=== PATIENT | female | born 1950 | race Caucasian/White ===

== ENCOUNTER → 2016-11-24 | Outpatient (CLI) | payer MEDICARE, OTHER ==
--- NOTE | 2016-11-25 10:25 | ECHOF ---
Referral Reason:R01.1 Cardiac Murmur MEASUREMENTS -------- HEIGHT: 127.0 cm WEIGHT: 88.0 kg BP: IVSd: 1.1 cm (0.6 - 1.1) LVIDd: 2.5 cm (3.9 - 5.3) LVPWd: 1.3 cm (0.6 - 1.1) IVSs: 1.7 cm LVIDs: 1.2 cm LVPWs: 1.1 cm Ao Diam: 3.3 cm (2.0 - 3.7) AV Cusp: 2.0 cm (1.5 - 2.6) LA Diam: 2.6 cm (2.7 - 3.8) MV EXCURSION: 13.189 mm (> 18.000) MV EF SLOPE: 44 mm/s (70 - 150) EPSS: 0.8 cm MV E Willard: 0.59 m/s MV DecT: 223 ms MV A [place]: 1.22 m/s MV E/A Ratio: 0.48 AR PHT: 1093 ms RAP: 5.00 mmHg RVSP: 11.77 mmHg FINDINGS -------- Sinus rhythm. This was a technically good study. Left ventricular wall thickness is normal. Overall left ventricular systolic function is normal with, an EF between 55 - 60 %. The right ventricle is normal in size. The left atrium is normal in size. The right atrium is normal in size. The aortic valve is trileaflet and appears structurally normal. There is mild aortic regurgitation. The mitral valve leaflets are mildly thickened. Mild mitral regurgitation is present. Mild tricuspid regurgitation present. The right ventricular systolic pressure, as measured by Doppler, is 11.77mmHg. Pulmonic valve appears structurally normal. The aortic root size is normal. The pericardium is normal. CONCLUSIONS -------- 1. Sinus rhythm. 2. The mitral valve leaflets are mildly thickened. 3. Mild mitral regurgitation is present. 4. Mild tricuspid regurgitation present. 5. The right ventricular systolic pressure, as measured by Doppler, is 11.77mmHg. 6. Pulmonic valve appears structurally normal. 7. The aortic root size is normal. 8. The pericardium is normal. 9. This was a technically good study. 10. Left ventricular wall thickness is normal. 11. Overall left ventricular systolic function is normal with, an EF between 55 - 60 %. 12. The right ventricle is normal in size. 13. The left atrium is normal in size. 14. The right atrium is normal in size. 15. The aortic valve is trileaflet and appears structurally normal. 16. There is mild aortic regurgitation. [employer]: Jennifer Mcnamara RDCS
== END | disposition home or self-care (01) ==
LOC: RADECHMAIN 14:42
PROVIDERS: ATTEND Family Medicine
DX: I08.3 Combined rheumatic disorders of mitral, aortic and tricuspid valves (principal)
CPT/HCPCS: 93306

== ENCOUNTER → 2017-01-02 | Outpatient (CLI) | payer MEDICARE, OTHER ==
--- NOTE | 2017-01-02 09:26 | XR ---
EXAMINATION TYPE: XR Hip RT and AP Pelvis DATE OF EXAM: 01/02/2017 COMPARISON: NONE HISTORY: Pelvic and right hip pain after fall injury November 24 TECHNIQUE: A single AP view of the pelvis is obtained. Two views of the right hip are obtained. FINDINGS: There is no acute fracture/dislocation evident in the pelvis. The sacroiliac joints appea r symmetric and unremarkable. Some sclerosis at pubic symphysis is present. Multiple overlying pelvic phleboliths are seen. Two views of right hip show no acute fracture or dislocation. No focal lytic or sclerotic lesion see n in the proximal right femur. There is asymmetric moderate axial joint space loss and mild to moder ate acetabular spurring in the right hip. The overlying soft tissue is unremarkable. IMPRESSION: There is no acute fracture or dislocation in the pelvis or right hip. Asymmetric moderat e degenerative change right hip versus the left hip is noted.
== END | disposition home or self-care (01) ==
LOC: RADXRMAIN 08:51
PROVIDERS: ATTEND Family Medicine
DX: M25.551 Pain in right hip (principal)
CPT/HCPCS: 73502

== ENCOUNTER 2017-03-21 11:39 | Emergency (ER) | payer MEDICARE, OTHER ==
[2017-03-21 11:49] VITALS: BP 152/80; PULSE 60; RESP 17; TEMP 97.8
--- NOTE | 2017-03-21 12:42 | XR ---
EXAMINATION TYPE: XR ankle complete LT, XR knee complete LT DATE OF EXAM: 03/21/2017 CLINICAL HISTORY: pain TECHNIQUE: Three views of the left knee are obtained. COMPARISON: None. FINDINGS: There is no acute fracture/dislocation. There is severe narrowing of the lateral tibiofemo ral joint space with mild widening seen medially. Moderate patellofemoral joint space narrowing. Spur formation is noted about the margins of the femoral condyles and tibial plateaus. Intercondylar spur formation is also noted. The overlying soft tissue appears unremarkable. IMPRESSION: There is no acute fracture or dislocation ICD 10 NO FRACTURE, INITIAL EVALUATION EXAMINATION TYPE: XR ankle complete LT, XR knee complete LT DATE OF EXAM: 03/21/2017 COMPARISON: NONE HISTORY: Pain TECHNIQUE: 3 views of the left ankle are submitted for evaluation. FINDINGS: There is no evidence for fracture or dislocation. Ankle mortise is intact. Postoperative ch anges about the os calcis and midfoot. Generative changes noted. Soft tissues are within normal limit s. IMPRESSION: 1. No evidence for acute fracture.
--- NOTE | 2017-03-21 12:50 | ED ---
Lower Extremity Injury HPI - General Chief Complaint: Extremity Injury, Lower Stated Complaint: left knee pain Time Seen by Provider: 03/21/17 12:05 Source: patient, RN notes reviewed Mode of arrival: EMS Limitations: no limitations - History of Present Illness Initial Comments: 67-year-old female presents emergency Department chief complaint of left knee and ankle pain. Patient states that she was vacuuming earlier today around 10 AM when she stepped back onto an exercise equipment piece and twisted her ankle and knee. Patient states she did fall and minimal head injury no loss conscious and denies any headache, dizziness, neck pain or any back pain. Patient states that she was barely able to put any weight on that side secondary to pain. Patient had prior surgery to her left foot but states the pain is only in her ankle and knee. - Related Data Home Medications Medication Instructions Recorded Confirmed Hydrochlorothiazide 25 mg PO DAILY 04/29/15 05/04/15 Allergies Allergy/AdvReac Type Severity Reaction Status Date / Time Tetanus Vaccines and Toxoid Allergy Swelling Verified 03/21/17 11:44 [Tetanus Vaccines & Toxoid] Review of Systems ROS Statement: Those systems with pertinent positive or pertinent negative responses have been documented in the HPI. ROS Other: All systems not noted in ROS Statement are negative. Past Medical History Past Medical History: Hypertension Additional Past Medical History / Comment(s): OCCASIONAL EDEMA LEFT LEG, RIB PAIN AT NIGHT R/T HX OF FX RIBS History of Any Multi-Drug Resistant Organisms: None Reported Past Surgical History: Hysterectomy, Orthopedic Surgery, Tubal Ligation Additional Past Surgical History / Comment(s): HEMATOMA REMOVED FROM RT LOPES, HEMATOMA REMOVED FROM LEFT KNEE, LEFT FOOT SX, WITH SCREWS, SOME REMOVED, BLADDER AND RECTAL SLING, LIPOMA REMOVED FROM LEFT UPPER BACK Past Anesthesia/Blood Transfusion Reactions: No Reported Reaction Past Psychological History: No Psychological Hx Reported Smoking Status: Never smoker Past Alcohol Use History: None Reported Past Drug Use History: None Reported - Past Family History Mother Family Medical History: Cancer Additional Family Medical History / Comment(s): COLON General Exam Limitations: no limitations General appearance: alert, in no apparent distress Head exam: Present: atraumatic, normocephalic, normal inspection Eye exam: Present: normal appearance, PERRL, EOMI. Absent: scleral icterus, conjunctival injection, periorbital swelling, periorbital tenderness ENT exam: Present: normal exam, normal oropharynx, mucous membranes moist Neck exam: Present: normal inspection. Absent: tenderness, meningismus, lymphadenopathy Respiratory exam: Present: normal lung sounds bilaterally. Absent: respiratory distress, wheezes, rales, rhonchi, stridor Cardiovascular Exam: Present: regular rate, normal rhythm, normal heart sounds. Absent: systolic murmur, diastolic murmur, rubs, gallop, clicks Extremities exam: Present: other (Left knee there is mild swelling, left ankle mild swelling there is tenderness to the left knee with full range of motion no laxity noted negative anterior posterior drawer, neurovascular intact with equal pedal pulses, left ankle tenderness greater on the lateral versus a medial malleolus there is no foot tenderness there is old surgical scars noted) Back exam: Present: full ROM. Absent: tenderness Neurological exam: Present: alert, oriented X3, CN II-XII intact, reflexes normal. Absent: motor sensory deficit Skin exam: Present: warm, dry, intact, normal color. Absent: rash Course Vital Signs 03/21/17 11:44 Temperature 97.8 F Pulse Rate 60 Respiratory 17 Rate Blood Pressure 152/80 O2 Sat by Pulse 100 Oximetry Medical Decision Making - Medical Decision Making 67-year-old female presented emergency from for fall, left knee ankle injury. There is no acute fracture. Patient most likely has a left ankle sprain in left knee sprain. Patient will be given Pierre wrap advised to follow up with PCP and return if symptoms worsen. Disposition Clinical Impression: Left knee sprain, Left ankle sprain Disposition: HOME SELF-CARE Condition: Stable Instructions: Knee Sprain (ED), Ankle Sprain (ED) Additional Instructions: Please return to the Emergency Department if symptoms worsen or any other concerns. Referrals: Greta Echevarria MD [Primary Care Provider] - 1-2 days Emmett Venegas DO [Doctor of Osteopathic Medicine] - 1-2 days Time of Disposition: 12:50
== END 2017-03-21 12:55 | disposition home or self-care (01) ==
LOC: EC 11:39
DX: S93.402A Sprain of unspecified ligament of left ankle, initial encounter (principal); S83.92XA Sprain of unspecified site of left knee, initial encounter; I10 Essential (primary) hypertension; Z79.899 Other long term (current) drug therapy; Z88.7 Allergy status to serum and vaccine; Z98.890 Other specified postprocedural states; W18.31XA Fall on same level due to stepping on an object, initial encounter; X50.1XXA Overexertion from prolonged static or awkward postures, initial encounter; Y93.E3 Activity, vacuuming
CPT/HCPCS: 99283

== ENCOUNTER → 2018-07-26 | Outpatient (CLI) | payer MEDICARE, OTHER ==
--- NOTE | 2018-07-27 13:31 | MM ---
Reason for exam: screening (asymptomatic). Physical Findings: A clinical breast exam by your physician is recommended on an annual basis and results should be correlated with mammographic findings. MG Screening Mammo w CAD Bilateral CC and MLO view(s) were taken. There are scattered fibroglandular densities. There are benign appearing round dystrophic calcifications bilaterally. There is chronic nodularity bilaterally. There is no discrete abnormality. ASSESSMENT: Benign, BI-RAD 2 RECOMMENDATION: Routine screening mammogram of both breasts in 1 year.
== END ==
LOC: RADMAMWWP 09:49
PROVIDERS: ATTEND Family Medicine
DX: Z12.31 Encounter for screening mammogram for malignant neoplasm of breast (principal)
CPT/HCPCS: 77067

== ENCOUNTER → 2019-09-12 | Outpatient (CLI) | payer MEDICARE, OTHER | END | disposition home or self-care (01) | LOC: RADUSWWP 07:48 | PROVIDERS: ATTEND Podiatrist Foot & Ankle Surgery | DX: I73.9 Peripheral vascular disease, unspecified (principal) | CPT/HCPCS: 93922; 93923 ==

== ENCOUNTER → 2019-09-27 | Outpatient (CLI) | payer MEDICARE ==
--- NOTE | 2019-09-27 14:31 | MM ---
Reason for exam: screening (asymptomatic). Last mammogram was performed 1 year and 2 months ago. History: Patient is postmenopausal. Took hormonal contraceptives for 2 months. Physical Findings: A clinical breast exam by your physician is recommended on an annual basis and results should be correlated with mammographic findings. MG Screening Mammo w CAD Bilateral CC and MLO view(s) were taken. Prior study comparison: July 26, 2018, bilateral MG screening mammo w CAD. There are scattered fibroglandular densities. Benign appearing bilateral calcifications. No suspicious abnormality. No significant changes when compared with prior studies. ASSESSMENT: Benign, BI-RAD 2 RECOMMENDATION: Routine screening mammogram of both breasts in 1 year.
== END | disposition home or self-care (01) ==
LOC: RADMAMWWP 07:53
PROVIDERS: ATTEND Family Medicine
DX: Z12.31 Encounter for screening mammogram for malignant neoplasm of breast (principal)
CPT/HCPCS: 77067

== ENCOUNTER → 2020-02-06 | Outpatient (CLI) | payer MEDICARE ==
--- NOTE | 2020-02-06 14:02 | XR ---
EXAMINATION TYPE: XR lumbosacral spine min 5 views XR Hip Complete 2 views RT DATE OF EXAM: 02/06/2020 COMPARISON: NONE HISTORY: 69-year-old female with right thigh pain, M79.651 FINDINGS: LUMBAR SPINE: Advanced hypertrophic facet arthropathy mid to lower lumbar spine. Transitional lumbosacral segment d enoted as a sacralized L5. Grade 1 retrolisthesis at L1-L2 and L2-L3. Grade 1 anterolisthesis at L3-L 4 and L4-L5. Moderate degenerative disc disease with bulky endplate spondylosis throughout. [place]' s disease. Vertebral body heights are preserved. RIGHT HIP: Mild superolateral narrowing of right hip joint space. Multiple pelvic phleboliths. Marginal spurring is present. No acute fracture, subluxation, or dislocation. IMPRESSION: 1. Lumbar spine: Severe hypertrophic facet arthropathy. Transitional lumbosacral segment denoted as a sacralized L5. Grade 1 spondylolisthesis from L1 through L5 levels. Moderate degenerative disc disea se and endplate spondylosis throughout. 2. Right hip: Mild right hip OA. No acute osseous abnormality seen.
== END | disposition home or self-care (01) ==
LOC: RADXRMAIN 13:05
PROVIDERS: ATTEND Family Medicine
DX: M16.11 Unilateral primary osteoarthritis, right hip (principal); M51.36 Other intervertebral disc degeneration, lumbar region; M47.816 Spondylosis without myelopathy or radiculopathy, lumbar region; M43.16 Spondylolisthesis, lumbar region; M46.96 Unspecified inflammatory spondylopathy, lumbar region
CPT/HCPCS: 72110; 73502

== ENCOUNTER 2020-07-28 07:47 | Emergency (ER) | payer MEDICARE ==
[2020-07-28 07:52] VITALS: PULSE 57; RESP 18; TEMP 98.1
[2020-07-28] MEDS ORDERED: KETOROLAC 15 MG/ML 1 ML VIAL IVP STA (08:02)
--- NOTE | 2020-07-28 08:15 | ED ---
General Adult HPI - General Chief complaint: Back Pain/Injury Stated complaint: lower back pain,nausea Time Seen by Provider: 07/28/20 07:53 Source: patient, RN notes reviewed, old records reviewed Mode of arrival: wheelchair Limitations: no limitations - History of Present Illness Initial comments: 70-year-old female presenting for acute low back pain. Patient developed left- sided low back pain suddenly yesterday evening around 7 PM. She reports as sociated nausea. No vomiting. She denies dysuria or hematuria. She denies any specific injury. She denies pain to the lower extremities. She denies numbness or weakness in the lower extremities. She states she did have one episode of loose stool. No upper abdominal pain. No chest pain. No dyspnea. - Related Data Home Medications Medication Instructions Recorded Confirmed hydroCHLOROthiazide 25 mg PO DAILY 04/29/15 07/28/20 Ibuprofen [Motrin] 400 mg PO Q8H PRN 05/26/17 07/28/20 Losartan [Cozaar] 25 mg PO DAILY 07/28/20 07/28/20 Previous Rx's Medication Instructions Recorded HYDROcodone/APAP 5-325MG [[place] 1 tab PO Q6HR PRN #12 tab 07/28/20 5-325] Ibuprofen [Motrin] 600 mg PO Q8HR PRN #24 tab 07/28/20 Allergies Allergy/AdvReac Type Severity Reaction Status Date / Time Tetanus Vaccines and Toxoid Allergy Swelling Verified 07/28/20 08:43 [Tetanus Vaccines & Toxoid] Review of Systems ROS Statement: Those systems with pertinent positive or pertinent negative responses have been documented in the HPI. ROS Other: All systems not noted in ROS Statement are negative. Past Medical History Past Medical History: Hypertension Additional Past Medical History / Comment(s): OCCASIONAL EDEMA LEFT LEG, RIB PAIN AT NIGHT R/T HX OF FX RIBS History of Any Multi-Drug Resistant Organisms: None Reported Past Surgical History: Hysterectomy, Orthopedic Surgery, Tubal Ligation Additional Past Surgical History / Comment(s): HEMATOMA REMOVED FROM RT LOPES, HEMATOMA REMOVED FROM LEFT KNEE, LEFT FOOT SX, WITH SCREWS, SOME REMOVED, BLADDER AND RECTAL SLING, LIPOMA REMOVED FROM LEFT UPPER BACK Past Anesthesia/Blood Transfusion Reactions: No Reported Reaction Past Psychological History: No Psychological Hx Reported Smoking Status: Never smoker Past Alcohol Use History: None Reported Past Drug Use History: None Reported - Past Family History Mother Family Medical History: Cancer Additional Family Medical History / Comment(s): COLON General Exam Limitations: no limitations General appearance: alert, in no apparent distress Head exam: Present: atraumatic, normocephalic Eye exam: Present: normal appearance, PERRL ENT exam: Present: normal exam Neck exam: Present: normal inspection. Absent: tenderness, meningismus Respiratory exam: Present: normal lung sounds bilaterally. Absent: respiratory distress, wheezes Cardiovascular Exam: Present: regular rate, normal rhythm GI/Abdominal exam: Present: soft. Absent: distended, tenderness Extremities exam: Present: normal inspection, other (Normal sensation, 2+ DP pulses bilaterally.). Absent: pedal edema Back exam: Present: normal inspection, tenderness, CVA tenderness (L), paraspinal tenderness (Left). Absent: full ROM Neurological exam: Present: alert, oriented X3, CN II-XII intact. Absent: motor sensory deficit Psychiatric exam: Present: normal affect, normal mood Skin exam: Present: warm, dry, intact. Absent: cyanosis, diaphoretic Course Vital Signs 07/28/20 07/28/20 07/28/20 07:49 08:52 09:00 Temperature 98.1 F Pulse Rate 57 L 57 L 57 L Respiratory 18 18 18 Rate Blood Pressure 130/74 140/72 140/72 O2 Sat by Pulse 100 100 100 Oximetry Medical Decision Making - Medical Decision Making 70-year-old female with left-sided lower back pain. Patient hemodynamically stable. She has normal sensation, normal strength in the lower extremities. Symptoms began abruptly. She has had issues with chronic back pain in the past and does follow with chiropractor and has been followed by her primary care physician for this pain over the past one year. Patient has been given 50 mg of Toradol and 0.5 mg of Dilaudid emergency department with significant improvement in her pain. Workup reveals mild leukocytosis 11.3 of uncertain etiology. Normal CMP. Urinalysis shows 2+ ketones with no signs of infection or hematuria. CT of the lumbar spine as well as CT abdomen and pelvis showing multilevel degenerative change in the lumbar spine with no acute findings. No hydronephrosis, no renal stones. No other acute findings. Patient feeling better on reevaluation. She's given outpatient orthopedic follow-up. She will be prescribed anti-inflammatories for her low back pain. - Lab Data Result diagrams: 07/28/20 08:19 12 08:19 Lab Results 07/28/20 07/28/20 07/28/20 Range/Units 08:19 08:19 08:19 WBC 11.3 H (3.8-10.6) k/uL RBC 4.27 (3.80-5.40) m/uL Hgb 13.4 (11.4-16.0) gm/dL Hct 40.0 (34.0-46.0) % MCV 93.7 (80.0-100.0) fL MCH 31.3 (25.0-35.0) pg MCHC 33.4 (31.0-37.0) g/dL RDW 12.5 (11.5-15.5) % Plt Count 342 (150-450) k/uL MPV 6.7 Neutrophils % 86 % Lymphocytes % 9 % Monocytes % 4 % Eosinophils % 0 % Basophils % 0 % Neutrophils # 9.7 H (1.3-7.7) k/uL Lymphocytes # 1.0 (1.0-4.8) k/uL Monocytes # 0.5 (0-1.0) k/uL Eosinophils # 0.0 (0-0.7) k/uL Basophils # 0.0 (0-0.2) k/uL PT 9.7 (9.0-12.0) sec INR 0.9 (<1.2) APTT 23.0 (22.0-30.0) sec Sodium (137-145) mmol/L Potassium (3.5-5.1) mmol/L Chloride (98-107) mmol/L Carbon Dioxide (22-30) mmol/L Anion Gap mmol/L BUN (7-17) mg/dL Creatinine (0.52-1.04) mg/dL Est GFR (CKD-EPI)AfAm (>60 ml/min/1.73 sqM) Est GFR (CKD-EPI)NonAf (>60 ml/min/1.73 sqM) Glucose (74-99) mg/dL Calcium (8.4-10.2) mg/dL Total Bilirubin (0.2-1.3) mg/dL AST (14-36) U/L ALT (4-34) U/L Alkaline Phosphatase (38-126) U/L Total Protein (6.3-8.2) g/dL Albumin (3.5-5.0) g/dL Urine Color Yellow Urine Appearance Clear (Clear) Urine pH 6.0 (5.0-8.0) Ur Specific [place] 1.025 (1.001-1.035) Urine Protein Negative (Negative) Urine Glucose (UA) Negative (Negative) Urine Ketones 2+ H (Negative) Urine Blood Negative (Negative) Urine Nitrite Negative (Negative) Urine Bilirubin Negative (Negative) Urine Urobilinogen <2.0 (<2.0) mg/dL Ur Leukocyte Esterase Negative (Negative) 07/28/20 Range/Units 08:19 WBC (3.8-10.6) k/uL RBC (3.80-5.40) m/uL Hgb (11.4-16.0) gm/dL Hct (34.0-46.0) % MCV (80.0-100.0) fL MCH (25.0-35.0) pg MCHC (31.0-37.0) g/dL RDW (11.5-15.5) % Plt Count (150-450) k/uL MPV Neutrophils % % Lymphocytes % % Monocytes % % Eosinophils % % Basophils % % Neutrophils # (1.3-7.7) k/uL Lymphocytes # (1.0-4.8) k/uL Monocytes # (0-1.0) k/uL Eosinophils # (0-0.7) k/uL Basophils # (0-0.2) k/uL PT (9.0-12.0) sec INR (<1.2) APTT (22.0-30.0) sec Sodium 138 (137-145) mmol/L Potassium 3.8 (3.5-5.1) mmol/L Chloride 101 (98-107) mmol/L Carbon Dioxide 29 (22-30) mmol/L Anion Gap 8 mmol/L BUN 26 H (7-17) mg/dL Creatinine 0.49 L (0.52-1.04) mg/dL Est GFR (CKD-EPI)AfAm >90 (>60 ml/min/1.73 sqM) Est GFR (CKD-EPI)NonAf >90 (>60 ml/min/1.73 sqM) Glucose 120 H (74-99) mg/dL Calcium 9.9 (8.4-10.2) mg/dL Total Bilirubin 0.8 (0.2-1.3) mg/dL AST 27 (14-36) U/L ALT 21 (4-34) U/L Alkaline Phosphatase 80 (38-126) U/L Total Protein 7.9 (6.3-8.2) g/dL Albumin 4.5 (3.5-5.0) g/dL Urine Color Urine Appearance (Clear) Urine pH (5.0-8.0) Ur Specific [place] (1.001-1.035) Urine Protein (Negative) Urine Glucose (UA) (Negative) Urine Ketones (Negative) Urine Blood (Negative) Urine Nitrite (Negative) Urine Bilirubin (Negative) Urine Urobilinogen (<2.0) mg/dL Ur Leukocyte Esterase (Negative) Disposition Clinical Impression: Mechanical back pain, Strain of lumbar region, Osteoarthritis Disposition: HOME SELF-CARE Condition: Fair Instructions (If sedation given, give patient instructions): Acute Low Back Pain (ED) Additional Instructions: Please return to the emergency department with worsening or changing symptoms. Please follow-up with [facility]opedic[facility]. Prescriptions: Ibuprofen [Motrin] 600 mg PO Q8HR PRN #24 tab PRN Reason: Pain HYDROcodone/APAP 5-325MG [[place] 5-325] 1 tab PO Q6HR PRN #12 tab PRN Reason: Pain Is patient prescribed a controlled substance at d/c from ED?: No Referrals: Alvaro Mcleod [Primary Care Provider] - 1-2 days Jeanine Montes De Oca DO [Doctor of Osteopathic Medicine] - 1-2 days Logan Tracy DO [Doctor of Osteopathic Medicine] - 1-2 days Time of Disposition: 09:49
[2020-07-28 08:33] LABS: Appearance,Urine Clear (Clear); Bilirubin,Urine Negative (Negative); Blood,Urine Negative (Negative); Color,Urine Yellow; Glucose,Urine (UA) Negative (Negative); Ketones,Urine 2+ (Negative); Leukocyte Esterase,Urine Negative (Negative); Nitrite,Urine Negative (Negative); Protein,Urine Negative (Negative); Specific Gravity,Urine 1.025 (1.001-1.035); Urobilinogen,Urine <2.0 mg/dL (<2.0)
[2020-07-28 08:38] LABS: Basophils % (A) 0 %; Eosinophils % (A) 0 %; HGB 13.4 gm/dL (11.4-16.0); Lymphocytes % (A) 9 %; MCH 31.3 pg (25.0-35.0); MCHC 33.4 g/dL (31.0-37.0); MCV 93.7 fL (80.0-100.0); Mean Platelet Volume 6.7; Monocytes # (A) 0.5 k/uL (0-1.0); Monocytes % (A) 4 %; Neutrophils # (A) 9.7 k/uL (1.3-7.7); Neutrophils % (A) 86 %; Platelet Count 342 k/uL (150-450); RBC 4.27 m/uL (3.80-5.40); RDW 12.5 % (11.5-15.5); WBC 11.3 k/uL (3.8-10.6)
[2020-07-28 08:41] LABS: ALT 21 U/L (4-34); AST 27 U/L (14-36); African American GFR (CKD) >90 (>60 ml/min/1.73 sqM); Albumin 4.5 g/dL (3.5-5.0); Alkaline Phosphatase 80 U/L (38-126); Anion Gap 8 mmol/L; Blood Urea Nitrogen 26 mg/dL (7-17); Calcium 9.9 mg/dL (8.4-10.2); Carbon Dioxide 29 mmol/L (22-30); Chloride 101 mmol/L (98-107); Glucose 120 mg/dL (74-99); Non-African American GFR(CKD) >90 (>60 ml/min/1.73 sqM); Potassium 3.8 mmol/L (3.5-5.1); Sodium 138 mmol/L (137-145); Total Bilirubin 0.8 mg/dL (0.2-1.3); Total Protein 7.9 g/dL (6.3-8.2)
[2020-07-28 08:52] LABS: INR 0.9 (<1.2); Prothrombin Time 9.7 sec (9.0-12.0)
[2020-07-28] MEDS ORDERED: HYDROmorphone 0.5 MG/0.5 ML SYRINGE IVP STA (08:56)
[2020-07-28] MEDS ORDERED: SODIUM CHLORIDE 0.9% 500 ML 500 ML IV ONE (09:00)
--- NOTE | 2020-07-28 09:03 | CT ---
EXAMINATION TYPE: CT abdomen pelvis wo con, CT lumbar spine wo con DATE OF EXAM: 07/28/2020 HISTORY: Low back pain, left lower quadrant and pelvic pain since last night. CT DLP: 929.4 (accession [id number]), included in DLP from abd/pelvis (accession [id number]) [facility]. Auto mated Exposure Control for Dose Reduction was Utilized. TECHNIQUE: CT scan of the abdomen and pelvis is performed without oral or IV contrast. CT lumbar spi ne without contrast. COMPARISON: NONE FINDINGS: Within the limitations of a non-contrast study, the following observations are made. LUNG BASES: No significant abnormality is appreciated. LIVER/GB: Single punctate calcification in liver coronal image 34 is presumed benign. PANCREAS: No significant abnormality is seen. SPLEEN: No significant abnormality is seen. ADRENALS: No significant abnormality is seen. KIDNEYS: No significant abnormality is seen. BOWEL: Appendix within normal limits for base of cecum in the right pelvis. No suspicious small or la rge bowel dilatation. Suboptimal evaluation without enteric contrast noted. Few scattered sigmoid col onic diverticula. No surrounding inflammatory change or fat stranding. GENITAL ORGANS: Uterus is surgically absent. Scattered bilateral pelvic phleboliths. LYMPH NODES: No greater than 1cm abdominal or pelvic lymph nodes are appreciated. OSSEOUS STRUCTURES: Moderate axial joint space loss and spurring of both hips. Narrowing of pubic sym physis. Lumbar spine: There is a transitional vertebra. There is grade 1 anterolisthesis L4 on L5 seen best s agittal image 27. There is grade 1 retrolisthesis L2 on L3. Moderate to severe disc space narrowing w ith vacuum disc phenomenon and moderate to severe spurring L2-L3 level. Mild to moderate disc space n arrowing with vacuum disc phenomenon and moderate right-sided spurring L4-L5 level. Additional modera te multilevel anterior and lateral spurring. Slight scoliotic curvature on coronal images. Review of axial images shows spondylolisthesis and posterior spur disc complex effacing the anterior thecal sac at L2-L3 level on image 27 and causing [id number] left-sided neural foraminal narrow ing. Axial images at the L3-L4 level show moderate to advanced broad disc bulge and moderate facet arthrop athy. There is effacement of the anterior and posterior lateral thecal sac on image 37. There is mode rate right and mild left-sided neural foraminal narrowing. Axial images at L4-L5 level shows advanced facet arthropathy with spondylolisthesis and advanced broa d disc bulge. There is effacement of the anterior thecal sac. There is moderate to severe bilateral n eural foraminal narrowing on axial image 46. Axial images at the L5-L6 level show advanced facet arthropathy bilaterally. Posterior spur disc comp boom is present. There is moderate bilateral anterior inferior neural foraminal narrowing. OTHER: No significant additional abnormality is seen. IMPRESSION: Multilevel spondylolisthesis and fairly advanced degenerative changes in the lumbar spine as detailed above. No acute findings are evident.
[2020-07-28 10:00] VITALS: BP 146/86
== END 2020-07-28 09:53 | disposition home or self-care (01) ==
LOC: EC 07:47
DX: M47.816 Spondylosis without myelopathy or radiculopathy, lumbar region (principal); S39.012A Strain of muscle, fascia and tendon of lower back, initial encounter; M19.90 Unspecified osteoarthritis, unspecified site; I10 Essential (primary) hypertension; G89.29 Other chronic pain; M54.9 Dorsalgia, unspecified; D72.829 Elevated white blood cell count, unspecified; Z79.899 Other long term (current) drug therapy; Z88.7 Allergy status to serum and vaccine; X58.XXXA Exposure to other specified factors, initial encounter
CPT/HCPCS: 36415; 80053; 85025; 85610; 85730; 81003; 72131; 74176; 99284; 96374; 96375; J1885; J1170

== ENCOUNTER → 2020-08-24 | Outpatient (CLI) | payer MEDICARE, OTHER ==
--- NOTE | 2020-08-25 07:58 | MR ---
EXAMINATION TYPE: MR lumbar spine wo con DATE OF EXAM: 08/24/2020 COMPARISON: CT lumbar spine 07/28/2020 HISTORY: Low back pain TECHNIQUE: Multiplanar, multisequence images of the lumbar spine were acquired. Numbering scheme used is not the same as on prior CT, first nonrib-bearing lumbar segments is labeled as L1, correlate prior to any intervention. L1-L2: Posterior broad-based disc bulge causes anterior mass effect on the thecal sac. There is some facet arthropathy change. No significant spinal stenosis. Retrolisthesis contributes to cause bilater al foraminal encroachment. L2-L3: Posterior broad-based disc bulge causes anterior mass effect on the thecal sac, circumferentia l extension endplate disc complex results in bilateral foraminal encroachment. Facet arthropathy caus es some posterior lateral mass effect on the thecal sac. L3-L4: There is spinal stenosis due to hypertrophic changes of the facets causing posterior lateral m ass effect on the thecal sac which results in a trefoil appearance of the thecal sac, listhesis contr ibutes to cause bilateral foraminal encroachment. There is some encroachment on the lateral recesses. Minimal posterior disc bulge is present causing anterior mass effect on the thecal sac. L4-L5: There is facet arthropathy present. Hypertrophic changes causes some posterior lateral mass ef fect on the thecal sac. Listhesis contributes to cause bilateral foraminal encroachment. No evident d isc herniation. L5-S1: Normal disc appearance without desiccation. No herniation, protrusion or disc bulging. No ca nal stenosis is present. Foramina are patent bilaterally. Lumbar segments are intact. No paraspinal masses are identified. Conus medullaris has a normal appe arance. There is a spinal curvature. Multilevel spondylosis is present. Anterolisthesis grade 1 L4-5 and greater at L3-4 where there is vacuum disc phenomenon, retrolisthesis grade 1 L1-2 with associate d vacuum disc. Multilevel loss of disc height is present. There is multilevel endplate discogenic mar row signal change, loss of disc height and signal at intervertebral levels. IMPRESSION: Numbering scheme is not the same as that seen on prior CT as described, correlate prior to any interv ention. Multilevel foraminal encroachment, degenerative disc disease, spinal stenosis as described. T here is a spinal curvature.
== END | disposition home or self-care (01) ==
LOC: RADMRIMAIN 09:25
PROVIDERS: ATTEND Orthopaedic Surgery Orthopaedic Surgery of the Spine
DX: M48.061 Spinal stenosis, lumbar region without neurogenic claudication (principal); M51.16 Intervertebral disc disorders with radiculopathy, lumbar region; M43.8X6 Other specified deforming dorsopathies, lumbar region; M16.11 Unilateral primary osteoarthritis, right hip
CPT/HCPCS: 72148

== ENCOUNTER → 2021-04-06 | Outpatient (CLI) | payer MEDICARE ==
--- NOTE | 2021-04-06 10:27 | US ---
EXAMINATION TYPE: US duplex aorta DATE OF EXAM: 04/06/2021 COMPARISON: CT CLINICAL HISTORY: R19.8 Pulsatile abdomen. Patient stated feels pulsatile aorta at umbilicus after lo sing 61lbs; controlled HTN with medication. EXAM MEASUREMENTS: Abdominal Aorta: Proximal: 2.4 x 2.3cm Mid: 2.1 x 1.7cm Distal: 2.0 x 1.5cm Bifurcation: Right MELIZA = 0.9 x 0.9cm; Left MELIZA = 1.1 x 1.3cm. Ectatic appearance to upper aorta is noted. Intimal wall thickening is noted intermittently throughou t aorta and into common iliac artery (MELIZA) bilaterally. IMPRESSION: 1. Atheromatous plaquing without fusiform prominence or aneurysmal dilatation of the aorta.
== END | disposition home or self-care (01) ==
LOC: RADUSWWP 06:56
PROVIDERS: ATTEND Family Medicine
DX: I70.0 Atherosclerosis of aorta (principal); I10 Essential (primary) hypertension
CPT/HCPCS: 93979

== ENCOUNTER → 2023-03-01 | Outpatient (CLI) | payer MEDICARE, OTHER ==
--- NOTE | 2023-03-01 10:32 | XR ---
EXAMINATION TYPE: XR Hip RT and AP Pelvis DATE OF EXAM: 03/01/2023 10:27 AM INDICATION: Patient age:Female; 72 years old; Reason for study: M25.551 Right hip pain; PHH. COMPARISON: Right hip/pelvic radiographs 01/02/2017 TECHNIQUE: The right hip was examined in the frontal and lateral projections and a AP pelvis. FINDINGS: No evidence of any acute osseous pathology, joint dislocation, or soft tissue swelling. Mil d superior-lateral narrowing of the right hip joint space again demonstrated. Marginal spurring is ag ain present. Multiple pelvic phleboliths. Degenerative changes of the visualized lumbar spine. IMPRESSION: 1. No acute osseous pathology. 2. Mild osteoarthritic changes of the right hip.
== END | disposition home or self-care (01) ==
LOC: RADXRMAIN 10:02
PROVIDERS: ATTEND Family Medicine
DX: M16.11 Unilateral primary osteoarthritis, right hip (principal)
CPT/HCPCS: 73502

== ENCOUNTER → 2023-12-07 | Outpatient (CLI) | payer MEDICARE, OTHER ==
--- NOTE | 2023-12-07 12:19 | XR ---
EXAMINATION TYPE: XR knee complete bilateral DATE OF EXAM: 12/07/2023 COMPARISON: Left knee 03/21/2017 HISTORY: 73-year-old female pain after recent fall TECHNIQUE: 3 views FINDINGS: Left: There is tricompartmental degenerative change, severe, bone on bone within the lateral compartment. A t least moderate in the patellofemoral compartment. There may be a moderate to large knee joint effus ion. No acute fracture, subluxation, or dislocation is seen. Right: Tricompartmental degenerative spurring. Small knee joint effusion. Mild narrowing of cartilage and emeka int space throughout the knee. Extensor mechanism is intact. IMPRESSION: 1. 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 Moderate to large joint effusion could be reactive. No acute osseous abnormality seen. I f concern for an occult osseous injury or internal derangement, MRI can be performed. 2. Right: Mild to moderate tricompartmental osteoarthrosis. Small knee joint effusion may be reactive .
== END | disposition home or self-care (01) ==
LOC: RADXRMAIN 11:18
PROVIDERS: ATTEND Family Medicine
DX: M17.12 Unilateral primary osteoarthritis, left knee (principal); M25.461 Effusion, right knee; M25.462 Effusion, left knee

== ENCOUNTER 2024-07-06 14:14 | Emergency (ER) | payer MEDICARE, OTHER ==
[2024-07-06 14:25] VITALS: TEMP 98.1
--- NOTE | 2024-07-06 15:16 | ED ---
Abdominal Pain HPI - General Source: patient, family, RN notes reviewed Mode of arrival: wheelchair Limitations: no limitations <Kendra Lowery - Last Filed: 07/06/24 17:01> <Cathy Ratliff - Last Filed: 07/06/24 18:34> - General Chief Complaint: Abdominal Pain Stated Complaint: R side abd pain Time Seen by Provider: 07/06/24 15:14 - History of Present Illness Initial Comments: 74-year-old female presented to the ER with a chief complaint of right flank/abdominal pain. Patient has a history of dementia and is a poor historian. Zmvazhgb-kg-spa at bedside is aiding in HPI. For the past few days patient has been complaining of right flank/lower abdominal pain. She states pain has made it difficult for her to ambulate. She does report a large hard bowel movement approximately 2 days ago. She has not had a bowel movement since. She denies any hematochezia, melena, nausea or vomiting. Patient denies any dysuria or hematuria. No fevers. Patient has tried taking suef-rjv-[id number] Tylenol without relief of symptoms. Patient denies any known injuries or falls. Patient has no other complaints. (Kendra Lowery) - Related Data Home Medications Medication Instructions Recorded Confirmed hydroCHLOROthiazide 25 mg PO DAILY 04/29/15 07/06/24 Atorvastatin [Lipitor] 20 mg PO HS 07/06/24 07/06/24 FLUoxetine HCL [PROzac] 20 mg PO DAILY 07/06/24 07/06/24 Focus Factor 4 tab PO DAILY 07/06/24 07/06/24 Previous Rx's Medication Instructions Recorded Lidocaine 5% Patch [Lidoderm 5% 1 patch TOPICAL DAILY 7 Days #7 07/06/24 Patch] patch Naproxen [Naprosyn] 500 mg PO Q12H PRN #30 tablet 07/06/24 Allergies Allergy/AdvReac Type Severity Reaction Status Date / Time Tetanus Vaccines and Toxoid Allergy Swelling Verified 07/06/24 17:19 [Tetanus Vaccines & Toxoid] Review of Systems ROS Other: All systems not noted in ROS Statement are negative. <Kendra Lowery - Last Filed: 07/06/24 17:01> ROS Other: All systems not noted in ROS Statement are negative. <Cathy Ratliff - Last Filed: 07/06/24 18:34> ROS Statement: Those systems with pertinent positive or pertinent negative responses have been documented in the HPI. Past Medical History Past Medical History: Dementia, Hypertension Additional Past Medical History / Comment(s): OCCASIONAL EDEMA LEFT LEG, RIB PAIN AT NIGHT R/T HX OF FX RIBS History of Any Multi-Drug Resistant Organisms: None Reported Past Surgical History: Hysterectomy, Orthopedic Surgery, Tubal Ligation Additional Past Surgical History / Comment(s): HEMATOMA REMOVED FROM RT LOPES, HEMATOMA REMOVED FROM LEFT KNEE, LEFT FOOT SX, WITH SCREWS, SOME REMOVED, BLADDER AND RECTAL SLING, LIPOMA REMOVED FROM LEFT UPPER BACK Past Anesthesia/Blood Transfusion Reactions: No Reported Reaction Past Psychological History: No Psychological Hx Reported Smoking Status: Never smoker Past Alcohol Use History: None Reported Past Drug Use History: None Reported - Past Family History Mother Family Medical History: Cancer Additional Family Medical History / Comment(s): COLON <Kendra Lowery - Last Filed: 07/06/24 17:01> General Exam Limitations: no limitations General appearance: alert, in no apparent distress Respiratory exam: Present: normal lung sounds bilaterally. Absent: respiratory distress, wheezes, rales, rhonchi, stridor Cardiovascular Exam: Present: regular rate, normal rhythm, normal heart sounds. Absent: systolic murmur, diastolic murmur, rubs, gallop, clicks GI/Abdominal exam: Present: soft, tenderness (RLQ/flank), normal bowel sounds Neurological exam: Present: alert, oriented X3, CN II-XII intact Skin exam: Present: warm, dry, intact, normal color. Absent: rash <Kendra Lowery - Last Filed: 07/06/24 17:01> Course Vital Signs 07/06/24 07/06/24 14:20 17:44 Temperature 98.1 F Pulse Rate 90 73 Respiratory 18 16 Rate Blood Pressure 141/83 134/71 O2 Sat by Pulse 99 99 Oximetry Medical Decision Making - Lab Data Result diagrams: 07/06/24 15:48 07/06/24 15:48 <Kendra Lowery - Last Filed: 07/06/24 17:01> - Lab Data Result diagrams: 07/06/24 15:48 07/06/24 15:48 <Cathy Ratliff - Last Filed: 07/06/24 18:34> - Medical Decision Making Was pt. sent in by a medical professional or institution (, RUDY, HOLTER SCANNING TECHNICIAN, urgent care, hospital, or residential...) When possible be specific @ -No Did you speak to anyone other than the patient for history (EMS, parent, family, police, friend...)? What history was obtained from this source @ -Jhcuoyhv-sd-lgq aiding in HPI and past medical history. Did you review nursing and triage notes (agree or disagree)? Why? @ -I reviewed and agree with nursing and triage notes Were old charts reviewed (outside hosp., previous admission, EMS record, old EKG, old radiological studies, urgent care reports/EKG's, residential records)? Report findings @ -No old charts were reviewed Differential Diagnosis (chest pain, altered mental status, abdominal pain women, abdominal pain men, vaginal bleeding, weakness, fever, dyspnea, syncope, headache, dizziness, GI bleed, back pain, seizure, CVA, palpatations, mental health, musculoskeletal)? @ -Differential Abdominal Pain Women:Appendicitis, Cholecystitis, diverticulosis, ischemic bowel, pancreatitis, hepatitis, UTI, gastroenteritis, AAA, incarcerated hernia, bowel obstruction, constipation, inflammatory bowel, hepatitis, peptic ulcer disease, splenic infarction, perforated viscus, vulvitis, ovarian torsion, PID, kidney stone, placenta abruption, this is not meant to be an all-inclusive list EKG interpreted by me (3pts min.). @ -None done X-rays interpreted by me (1pt min.). @ -None done CT interpreted by me (1pt min.). @ -CT abdomen pelvis negative for acute intra-abdominal process. U/S interpreted by me (1pt. min.). @ -None done What testing was considered but not performed or refused? (CT, X-rays, U/S, labs)? Why? @ -None What meds were considered but not given or refused? Why? @ -None Did you discuss the management of the patient with other professionals (professionals i.e. RUDY Vuong, HOLTER SCANNING TECHNICIAN, lab, RT, psych nurse, social work faculty member, sales and marketing representative, teacher, enforcement safety officer, high risk case manager)? Give summary @ -No Was smoking cessation discussed for >3mins.? @ -No Was critical care preformed (if so, how long)? @ -No Were there social determinants of health that impacted care today? How? (Homelessness, low income, unemployed, alcoholism, drug addiction, transportation, low edu. Level, literacy, decrease access to med. care, longterm, rehab)? @ -No Was there de-escalation of care discussed even if they declined (Discuss DNR or withdrawal of care, Hospice)? DNR status @ -No What co-morbidities impacted this encounter? (DM, HTN, Smoking, COPD, CAD, Cancer, CVA, ARF, Chemo, Hep., AIDS, mental health diagnosis, sleep apnea, morbid obesity)? @ -Dementia Was patient admitted / discharged? Hospital course, mention meds given and route, prescriptions, significant lab abnormalities, going to OR and other pertinent info. @ -74-year-old female presented to the ER with a chief complaint of right flank/right lower quadrant abdominal pain. History and physical exam completed. Vitals within normal limits. Patient in no signs of acute distress. Exam remarkable for right lower quadrant/right flank pain. No CVA tenderness. Pain is reproducible to touch. There is no overlying skin changes. CBC unremarkable. CMP showing elevation in AST 42, ALT 36. CT abdomen pelvis performed due to focal right lower quadrant abdominal tenderness and negative for acute process. Patient given 1 L IV fluids and Toradol for symptom control. Patient signed out to Cathy Ratliff PA-C at shift completion pending urinalysis and disposition. (Kendra Lowery) Was pt. sent in by a medical professional or institution (RUDY Vuong, HOLTER SCANNING TECHNICIAN, urgent care, hospital, or residential...) When possible be specific @ -No Did you speak to anyone other than the patient for history (EMS, parent, family, police, friend...)? What history was obtained from this source @ -Patient's khcxnekw-ji-pvg supplemented history Did you review nursing and triage notes (agree or disagree)? Why? @ -I reviewed and agree with nursing and triage notes Were old charts reviewed (outside hosp., previous admission, EMS record, old EKG, old radiological studies, urgent care reports/EKG's, residential records)? Report findings @ -No old charts were reviewed Differential Diagnosis (chest pain, altered mental status, abdominal pain women, abdominal pain men, vaginal bleeding, weakness, fever, dyspnea, syncope, headache, dizziness, GI bleed, back pain, seizure, CVA, palpatations, mental health, musculoskeletal)? @ -Differential Abdominal Pain Women: Appendicitis, Cholecystitis, diverticulosis, ischemic bowel, pancreatitis, hepatitis, UTI, gastroenteritis, AAA, incarcerated hernia, bowel obstruction, constipation, inflammatory bowel, hepatitis, peptic ulcer disease, splenic infarction, perforated viscus, vulvitis, ovarian torsion, PID, kidney stone, placenta abruption, this is not meant to be an all-inclusive list EKG interpreted by me (3pts min.). @ -None X-rays interpreted by me (1pt min.). @ -None done CT interpreted by me (1pt min.). @ -CT abdomen pelvis reveals no acute process U/S interpreted by me (1pt. min.). @ -None done What testing was considered but not performed or refused? (CT, X-rays, U/S, labs)? Why? @ -None What meds were considered but not given or refused? Why? @ -None Did you discuss the management of the patient with other professionals (professionals i.e. , PA, HOLTER SCANNING TECHNICIAN, lab, RT, psych nurse, social work faculty member, sales and marketing representative, teacher, enforcement safety officer, high risk case manager)? Give summary @ -No Was smoking cessation discussed for >3mins.? @ -No Was critical care preformed (if so, how long)? @ -No Were there social determinants of health that impacted care today? How? (Homelessness, low income, unemployed, alcoholism, drug addiction, transportation, low edu. Level, literacy, decrease access to med. care, longterm, rehab)? @ -No Was there de-escalation of care discussed even if they declined (Discuss DNR or withdrawal of care, Hospice)? DNR status @ -No What co-morbidities impacted this encounter? (DM, HTN, Smoking, COPD, CAD, Cancer, CVA, ARF, Chemo, Hep., AIDS, mental health diagnosis, sleep apnea, morbid obesity)? @ -None Was patient admitted / discharged? Hospital course, mention meds given and route, prescriptions, significant lab abnormalities, going to OR and other pertinent info. @ -Discharge. This is a 74-year-old female presenting to the ER with chief complaint of right flank pain x 2 days. Vital signs are within acceptable limits. Abdomen is soft and nontender. There is tenderness to palpation along the right flank consistent with musculoskeletal pain. Lab work and urinalysis unremarkable. CT abdomen pelvis unremarkable. Results discussed with patient and [id number]. Pain is likely musculoskeletal in nature. Appropriate return precautions, supportive care, and follow-up care discussed and they are agreeable to plan. Case was discussed with my ED attending Dr. Russo Undiagnosed new problem with uncertain prognosis? @ -No Drug Therapy requiring intensive monitoring for toxicity (Heparin, Nitro, Insulin, Cardizem)? @ -No Were any procedures done? @ -No Diagnosis/symptom? @ -Right flank pain Acute, or Chronic, or Acute on Chronic? @ -Acute Uncomplicated (without systemic symptoms) or Complicated (systemic symptoms)? @ -Uncomplicated Side effects of treatment? @ -No Exacerbation, Progression, or Severe Exacerbation? @ -No Poses a threat to life or bodily function? How? (Chest pain, [place], [place], pneumonia, PE, COPD, DKA, ARF, appy, cholecystitis, CVA, Diverticulitis, Homicidal, Suicidal, threat to staff... and all critical care pts) @ -No (Cathy Ratliff) - Lab Data Lab Results 07/06/24 07/06/24 07/06/24 Range/Units 15:48 15:48 15:48 WBC 7.6 (3.8-10.6) k/uL RBC 4.26 (3.80-5.40) m/uL Hgb 13.7 (11.4-16.0) gm/dL Hct 41.0 (34.0-46.0) % MCV 96.2 (80.0-100.0) fL MCH 32.2 (25.0-35.0) pg MCHC 33.5 (31.0-37.0) g/dL RDW 12.8 (11.5-15.5) % Plt Count 306 (150-450) k/uL MPV 7.0 Neutrophils % 69 % Lymphocytes % 20 % Monocytes % 7 % Eosinophils % 1 % Basophils % 1 % Neutrophils # 5.3 (1.3-7.7) k/uL Lymphocytes # 1.5 (1.0-4.8) k/uL Monocytes # 0.5 (0-1.0) k/uL Eosinophils # 0.1 (0-0.7) k/uL Basophils # 0.0 (0-0.2) k/uL Sodium 139 (137-145) mmol/L Potassium 4.3 (3.5-5.1) mmol/L Chloride 106 (98-107) mmol/L Carbon Dioxide 25 (22-30) mmol/L Anion Gap 8 mmol/L BUN 16 (7-17) mg/dL Creatinine 0.62 (0.52-1.04) mg/dL Est GFR (CKD-EPI)AfAm >90 (>60 ml/min/1.73 sqM) Est GFR (CKD-EPI)NonAf 89 (>60 ml/min/1.73 sqM) Glucose 98 (74-99) mg/dL Plasma Lactic Acid Hosea 1.5 (0.7-2.0) mmol/L Calcium 9.7 (8.4-10.2) mg/dL Total Bilirubin 1.1 (0.2-1.3) mg/dL AST 42 H (14-36) U/L ALT 36 H (4-34) U/L Alkaline Phosphatase 123 (38-126) U/L Total Protein 7.1 (6.3-8.2) g/dL Albumin 4.1 (3.5-5.0) g/dL Amylase 52 (30-110) U/L Lipase 74 (23-300) U/L Urine Color Urine Appearance (Clear) Urine pH (5.0-8.0) Ur Specific Lane (1.001-1.035) Urine Protein (Negative) Urine Glucose (UA) (Negative) Urine Ketones (Negative) Urine Blood (Negative) Urine Nitrite (Negative) Urine Bilirubin (Negative) Urine Urobilinogen (<2.0) mg/dL Ur Leukocyte Esterase (Negative) 07/06/24 Range/Units 17:23 WBC (3.8-10.6) k/uL RBC (3.80-5.40) m/uL Hgb (11.4-16.0) gm/dL Hct (34.0-46.0) % MCV (80.0-100.0) fL MCH (25.0-35.0) pg MCHC (31.0-37.0) g/dL RDW (11.5-15.5) % Plt Count (150-450) k/uL MPV Neutrophils % % Lymphocytes % % Monocytes % % Eosinophils % % Basophils % % Neutrophils # (1.3-7.7) k/uL Lymphocytes # (1.0-4.8) k/uL Monocytes # (0-1.0) k/uL Eosinophils # (0-0.7) k/uL Basophils # (0-0.2) k/uL Sodium (137-145) mmol/L Potassium (3.5-5.1) mmol/L Chloride (98-107) mmol/L Carbon Dioxide (22-30) mmol/L Anion Gap mmol/L BUN (7-17) mg/dL Creatinine (0.52-1.04) mg/dL Est GFR (CKD-EPI)AfAm (>60 ml/min/1.73 sqM) Est GFR (CKD-EPI)NonAf (>60 ml/min/1.73 sqM) Glucose (74-99) mg/dL Plasma Lactic Acid Hosea (0.7-2.0) mmol/L Calcium (8.4-10.2) mg/dL Total Bilirubin (0.2-1.3) mg/dL AST (14-36) U/L ALT (4-34) U/L Alkaline Phosphatase (38-126) U/L Total Protein (6.3-8.2) g/dL Albumin (3.5-5.0) g/dL Amylase (30-110) U/L Lipase (23-300) U/L Urine Color Colorless Urine Appearance Clear (Clear) Urine pH 8.0 (5.0-8.0) Ur Specific Lane 1.029 (1.001-1.035) Urine Protein Negative (Negative) Urine Glucose (UA) Negative (Negative) Urine Ketones 1+ H (Negative) Urine Blood Negative (Negative) Urine Nitrite Negative (Negative) Urine Bilirubin Negative (Negative) Urine Urobilinogen <2.0 (<2.0) mg/dL Ur Leukocyte Esterase Negative (Negative) Disposition <Kendra Lowery - Last Filed: 07/06/24 17:01> Is patient prescribed a controlled substance at d/c from ED?: No Time of Disposition: 18:23 <Cahty Ratliff - Last Filed: 07/06/24 18:34> Clinical Impression: Right flank pain Disposition: HOME SELF-CARE Condition: Stable Additional Instructions: Use the lidocaine patches and anti-inflammatories as needed for pain. Please return to the Emergency Department if symptoms worsen or any other concerns. Prescriptions: Lidocaine 5% Patch [Lidoderm 5% Patch] 1 patch TOPICAL DAILY 7 Days #7 patch Naproxen [Naprosyn] 500 mg PO Q12H PRN #30 tablet PRN Reason: Pain Referrals: Jose Jansen MD [Primary Care Provider] - 1-2 days
[2024-07-06] MEDS: SODIUM CHLORIDE 0.9% 1,000 ML IV STA (15:46)
[2024-07-06] MEDS: KETOROLAC 15 MG/ML 1 ML VIAL IVP STA (15:47)
[2024-07-06 15:54] LABS: Basophils % (A) 1 %; Eosinophils # (A) 0.1 k/uL (0-0.7); Eosinophils % (A) 1 %; HGB 13.7 gm/dL (11.4-16.0); Lymphocytes # (A) 1.5 k/uL (1.0-4.8); Lymphocytes % (A) 20 %; MCH 32.2 pg (25.0-35.0); MCHC 33.5 g/dL (31.0-37.0); MCV 96.2 fL (80.0-100.0); Monocytes # (A) 0.5 k/uL (0-1.0); Monocytes % (A) 7 %; Neutrophils # (A) 5.3 k/uL (1.3-7.7); Neutrophils % (A) 69 %; Platelet Count 306 k/uL (150-450); RBC 4.26 m/uL (3.80-5.40); RDW 12.8 % (11.5-15.5); WBC 7.6 k/uL (3.8-10.6)
[2024-07-06 16:04] LABS: ALT 36 U/L (4-34); AST 42 U/L (14-36); African American GFR (CKD) >90 (>60 ml/min/1.73 sqM); Albumin 4.1 g/dL (3.5-5.0); Alkaline Phosphatase 123 U/L (38-126); Amylase 52 U/L (30-110); Anion Gap 8 mmol/L; Blood Urea Nitrogen 16 mg/dL (7-17); Calcium 9.7 mg/dL (8.4-10.2); Carbon Dioxide 25 mmol/L (22-30); Chloride 106 mmol/L (98-107); Glucose 98 mg/dL (74-99); Lipase 74 U/L (23-300); Non-African American GFR(CKD) 89 (>60 ml/min/1.73 sqM); Potassium 4.3 mmol/L (3.5-5.1); Sodium 139 mmol/L (137-145); Total Bilirubin 1.1 mg/dL (0.2-1.3); Total Protein 7.1 g/dL (6.3-8.2)
--- NOTE | 2024-07-06 16:37 | CT ---
EXAMINATION TYPE: CT abdomen pelvis w con DATE OF EXAM: 07/06/2024 4:30 PM COMPARISON: Previous CT abdomen/pelvis 07/28/2020. CLINICAL INDICATION: Female, 74 years old with history of RLQ abd pain; rlq pain TECHNIQUE: Axial CT abdomen pelvis w con;Sagittal and coronal reformats were created on a separate w orkstation. Contrast used:100ml mL of Isovue 300 with IV Contrast, (none if empty) Oral contrast used: without Oral Contrast (none if empty) CT DLP: 1044.3 mGycm, Automated exposure control for dose reduction was used. FINDINGS: Study limited due to motion artifact. LOWER CHEST: Unremarkable ABDOMEN LIVER: Unremarkable GALLBLADDER AND BILE DUCTS: Unremarkable. PANCREAS: Unremarkable. SPLEEN: Unremarkable. ADRENAL GLANDS: Unremarkable. KIDNEYS AND URETERS: No evidence of hydronephrosis or renal calculus. The ureters are unremarkable. PELVIS BLADDER: No evidence for wall thickening or mass given limitations of exam. REPRODUCTIVE: The uterus is surgically absent. ABDOMEN & PELVIS STOMACH AND BOWEL: Moderate sized hiatal hernia with partial intrathoracic stomach.Appendix normal. N o evidence of bowel obstruction. PERITONEUM/RETROPERITONEUM: No evidence of pneumoperitoneum or free fluid. VASCULATURE: No evidence of aortic aneurysm. MUSCULOSKELETAL: No acute osseous abnormalities. Multilevel thoracolumbar spinal degenerative changes . Transitional lumbosacral spine anatomy noted. LYMPH NODES: No gross evidence for lymphadenopathy. SOFT TISSUE/ABDOMINAL WALL: Unremarkable IMPRESSION: No acute abnormality in the abdomen/pelvis or CT findings to explain reported symptoms. [facility], , 07/06/2024 4:34 PM
[2024-07-06 17:43] LABS: Appearance,Urine Clear (Clear); Bilirubin,Urine Negative (Negative); Blood,Urine Negative (Negative); Color,Urine Colorless; Glucose,Urine (UA) Negative (Negative); Ketones,Urine 1+ (Negative); Leukocyte Esterase,Urine Negative (Negative); Nitrite,Urine Negative (Negative); Protein,Urine Negative (Negative); Specific Gravity,Urine 1.029 (1.001-1.035); Urobilinogen,Urine <2.0 mg/dL (<2.0)
[2024-07-06 17:46] VITALS: BP 134/71; PULSE 73; RESP 16
== END 2024-07-06 18:47 | disposition home or self-care (01) ==
LOC: EC 14:14
DX: R10.31 Right lower quadrant pain (principal); F03.90 Unspecified dementia, unspecified severity, without behavioral disturbance, psychotic disturbance, mood disturbance, and anxiety; Z88.7 Allergy status to serum and vaccine
CPT/HCPCS: 36415; 80053; 82150; 83605; 83690; 85025; 81003; 74177; 99284; 96374; 96361; J1885; Q9967